=== PATIENT | male | born 1980 | race Caucasian/White ===

== ENCOUNTER 2021-09-13 10:08 | Emergency (ER) | payer BC, SELFPAY ==
--- NOTE | ~2021-09-13 | XR_ITS ---
EXAMINATION: XR finger 3rd RT min 2V EXAM DATE: 09/13/2021 10:36 INDICATION: PAIN/swelling Rt 3rd finger onset x 3 days after martial art . Initial encounter. TECHNIQUE: Right 3rd finger frontal, lateral and oblique projections obtained and reviewed. There is no prior study for comparison. FINDINGS: On the lateral projection there is 1 mm ossification along the volar aspect of the right 3r d middle phalangeal neck, could been usual location for an avulsion fracture and could be chronic fin ding but check for point tenderness. Finding has been indicated. Otherwise unremarkable exam. IMPRESSION: Punctate ossification; DAP volar plate avulsion not excludable. Reviewed, dictated and finalized at location A. ING MACHINE OPERATOR
[2021-09-13 10:20] VITALS: BP 137/73; PULSE 67; RESP 16; TEMP 36.3; O2SAT 100
--- NOTE | 2021-09-13 10:45 | ED.GENADULT ---
HPI - General Adult General Chief complaint: Extremity Injury, Upper Stated complaint: rt middle finger inj Source: patient Mode of arrival: ambulatory Limitations: no limitations History of Present Illness HPI narrative: Patient presents for evaluation of pain, swelling, decreased range of motion of the third digit of the right hand since Tuesday. He indicates he was at [employer] prior to the time of symptom onset. He does not remember injuring himself. He states that he has a stinging sensation in that digit. No erythema or drainage from the digit. He is right-hand dominant. He tried taking ibuprofen with some improvement in his symptoms thereafter. Related Data Allergies Allergy/AdvReac Type Severity Reaction Status Date / Time No Known Allergies Allergy Mild Verified 09/13/21 10:20 Review of Systems Review of Systems: CONSTITUTIONAL: Denies fever, chills, or sweats. EYES: Denies visual changes, redness, or discharge. ENT: Denies rhinorrhea, congestion, sore throat, or otalgia. CARDIOVASCULAR: Denies chest pain, palpitations, or edema. RESPIRATORY: Denies cough or dyspnea. GASTROINTESTINAL: Denies abdominal pain, nausea, vomiting, or diarrhea. GENITOURINARY: Denies dysuria or hematuria. SKIN: Denies rash or itching. MUSCULOSKELETAL: Reports pain, swelling and decreased ROM in 3rd digit of right hand NEUROLOGIC: Denies headache, numbness, dizziness, or weakness. PSYCHIATRIC: Denies anxiety or depression. [facility] Past Medical History Medical History (Updated 09/13/21 @ 11:08 by LAKISHA Self, ) No pertinent past medical history Surgical History Surgical History No pertinent past surgical history Family History Family History Mother Patient's mother is in good health Father Patient's father is in good health Sibling Patient's sister is in good health Patient's brother is in good health Social History Social History Alcohol intake: never Living arrangements: with family Gender identity (if verbalized by the patient): Male Sexual Orientation (if Verbalized by the Patient): Straight or Heterosexual Spiritual care concerns: No Exam Narrative: GENERAL: Well-appearing, well-nourished, and in no acute distress. HEAD: Normocephalic, atraumatic. EYES: PERRLA and EOMI. ENT: Nares clear, no rhinorrhea or epistaxis. Mucous membranes moist. Oropharynx without tonsillar hypertrophy exudate or other lesions. Bilateral TMs pearly langley nonbulging NECK: Supple. No adenopathy or masses. No carotid bruits or JVD CHEST: Clear to auscultation. No respiratory distress. No wheezes rales or rhonchi HEART: Regular rate and rhythm. No murmur heard. Normal peripheral pulses. ABDOMEN: Soft, nontender, nondistended, normal active bowel sounds. EXTREMITIES: There is swelling noted to the third digit of the right hand. There is tenderness over DIP joint of third digit of right hand. 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 5 out of 5 hand home energy inspector strength on the left SKIN: Warm, dry, no rash. NEURO: No focal deficits. Alert and oriented x3. PSYCH: Normal mood and affect. Course Course Emergency Course: This is a 41-year-old male who presented with complaints of pain, swelling, decreased range of motion in the third digit of the right hand. X-ray suggests questionable avulsion fracture. He was provided with a finger splint. He was advised to follow-up with hand surgeon outpatient. Advised on rice therapy. Provided with instructions for which he should return for further evaluation. Pt in agreement with plan of care. Level of Care: Express Care Visit Vital Signs Vital signs: Vital Signs Temperature 36.3 C L 09/13/21 10:20 Pulse Rate 67 09/13/21 10:20 Respiratory Rate 16 09/13/21 10:20 Blood Pressure 137/73 09/13/21
== END 2021-09-13 11:14 | disposition home or self-care (01) ==
PROVIDERS: Emergency Provider Nurse Practitioner; PCP Emergency Medicine
DX: S62.602A Fracture of unspecified phalanx of right middle finger, initial encounter for closed fracture (principal); X58.XXXA Exposure to other specified factors, initial encounter
CPT/HCPCS: 29130; 73140; 99204; G0463

== ENCOUNTER 2023-08-03 04:37 | Emergency (ER) | payer OTHER, SELFPAY ==
[2023-08-03] VITALS (15 sets, daily range): BP systolic 104–142; BP diastolic 67–93; PULSE 78–97; RESP 19–23; TEMP 37.1; O2SAT 98–100
[2023-08-03 04:53] LABS: Basophils Percent Auto 0.2 % (0.2-1.2); Eosinophils Percent Auto 0.1 % (0-4.4); Hematocrit 50.9 % (42.0-52.0); Immature Granulocyte Absolute 0.05 K/mm3 (0.00-0.031); Immature Granulocyte Percent A 0.3 % (0-0.5); Lymphocytes Absolute Auto 0.36 K/mm3 (0.9-3.2); Lymphocytes Percent Auto 2.5 % (18.3-44.2); Mean Corpuscular HGB Conc 33.4 g/dl (32-36); Mean Corpuscular Hemoglobin 30.4 pg (26-34); Mean Corpuscular Volume 90.9 fl (80-100); Mean Platelet Volume 10.2 fl (7.4-10.4); Monocytes Absolute Auto 0.3 K/mm3 (0.1-0.6); Monocytes Percent Auto 2.3 % (2.6-8.5); Neutrophils Absolute Auto 13.5 K/mm3 (1.3-6.7); Neutrophils Percent Auto 94.6 % (45.5-73.1); Platelet Count Result 271 k/mm3 (150-375); Red Cell Distribution Width 12.9 % (11.5-14.5); White Blood Count 14.3 K/mm3 (4.5-10.0)
[2023-08-03] MEDS: ONDANSETRON INJ 4 MG/2 ML VIAL IV PUSH (04:54)
[2023-08-03] MEDS: diphenhydrAMINE HCl INJ 50 MG/ML VIAL 25 MG IV PUSH (04:54)
[2023-08-03] MEDS: SODIUM CHLORIDE 0.9% IV 1,000 ML 999 ML IV CONT (04:55)
[2023-08-03 05:04] LABS: Alanine Aminotransferase 33 U/L (6-50); Albumin Level 5.1 g/dL (3.5-5.1); Alkaline Phosphatase 84 U/L (38-126); Anion Gap 15 mmol/L (8-16); Aspartate Amino Transferase 33 U/L (17-59); Bilirubin,Total 1.1 mg/dL (0.2-1.3); Blood Urea Nitrogen 22 mg/dL (9-20); Calcium 10.7 mg/dL (8.4-10.2); Carbon Dioxide 23 mmol/L (22-30); Chloride 103 mmol/L (98-107); Estimated CRCL calculation 57 ml/min; Estimated Glomerular Filt Rate 51; Glucose 160 mg/dL (65-110); Potassium 4.2 mmol/L (3.4-5.0); Sodium 141 mmol/L (137-145)
--- NOTE | 2023-08-03 05:33 | ED.GENADULT ---
HPI - General Adult General Chief complaint: Nausea/Vomiting/Diarrhea Stated complaint: N/V History of Present Illness HPI narrative: patient presents the emergency department with nausea and vomiting. Feeling has similar symptoms. EMS found him laying on the floor of the bathroom. He has been vomiting for a few hours. Related Data Allergies Allergy/AdvReac Type Severity Reaction Status Date / Time No Known Allergies Allergy Mild Verified 09/13/21 10:20 Review of Systems Review of Systems: Negative except for what is documented in the HPI [facility] Past Medical History Medical History (Updated 08/03/23 @ 05:52 by Taryn Wilcox MD) No pertinent past medical history Surgical History Surgical History No pertinent past surgical history Family History Family History Mother Patient's mother is in good health Father Patient's father is in good health Sibling Patient's sister is in good health Patient's brother is in good health Social History Social History Alcohol intake: never Living arrangements: with family Gender identity (if verbalized by the patient): Male Sexual Orientation (if Verbalized by the Patient): Straight or Heterosexual Spiritual care concerns: No Exam Narrative: GENERAL: Well-appearing, well-nourished, and in no acute distress. uncomfortable HEAD: Normocephalic, atraumatic. EYES: PERRLA and EOMI. ENT: Nares clear, no rhinorrhea or epistaxis. Mucous membranes moist. NECK: Supple. CHEST: Clear to auscultation. No respiratory distress. HEART: Regular rate and rhythm. ABDOMEN: Soft, nontender, nondistended. EXTREMITIES: Normal range of motion. No edema. SKIN: Warm, dry, no rash. NEURO: No focal deficits. Alert and oriented x3. PSYCH: Normal mood and affect. Course Vital Signs Vital signs: Vital Signs Pulse Oximetry 100 08/03/23 04:45 Temperature 37.1 C 08/03/23 04:46 Pulse Rate 97 08/03/23 04:47 Respiratory Rate 20 08/03/23 04:47 Blood Pressure 104/83 08/03/23 04:47 Pulse Oximetry 100 08/03/23 04:47 Oxygen Delivery Room Air 08/03/23 04:46 Medical Decision Making MDM Narrative Medical decision making narrative: differential diagnosis includes but not limited to gastroenteritis, marijuana induced vomiting, food poisoning after Zofran and fluids patient is feeling much better. Able to tolerate p.o.. Labs grossly unremarkable Vital Signs Vital Signs: Vital Signs Pulse Oximetry 100 08/03/23 04:45 Temperature 37.1 C 08/03/23 04:46 Pulse Rate 97 08/03/23 04:47 Respiratory Rate 20 08/03/23 04:47 Blood Pressure 104/83 08/03/23 04:47 Pulse Oximetry 100 08/03/23 04:47 Oxygen Delivery Room Air 08/03/23 04:46 Lab Data 08/03/23 04:46 08/03/23 04:46 Labs: Lab Results 08/03/23 Range/Units 04:46 WBC 14.3 H (4.5-10.0) K/mm3 RBC 5.60 (4.6-6.20) M/mm3 Hgb 17.0 (14.0-18.0) g/dL Hct 50.9 (42.0-52.0) % MCV 90.9 (80-100) fl MCH 30.4 (26-34) pg MCHC 33.4 (32-36) g/dl RDW 12.9 (11.5-14.5) % Plt Count 271 (150-375) k/mm3 MPV 10.2 (7.4-10.4) fl Immature Gran % (Auto) 0.3 (0-0.5) % Neut % (Auto) 94.6 H (45.5-73.1) % Lymph % (Auto) 2.5 L (18.3-44.2) % [place] % (Auto) 2.3 L (2.6-8.5) % Eos % (Auto) 0.1 (0-4.4) % Baso % (Auto) 0.2 (0.2-1.2) % Lymph # (Auto) 0.36 L (0.9-3.2) K/mm3 [place] # (Auto) 0.3 (0.1-0.6) K/mm3 Eos # (Auto) 0.0 (0-0.3) K/mm3 Baso # (Auto) 0.0 (0.0-0.1) K/mm3 Abs Immat Gran (auto) 0.05 H (0.00-0.031) K/mm3 Absolute Neuts (auto) 13.5 H (1.3-6.7) K/mm3 Absolute Nucleated RBC 0.0 (0.0-0.012) K/mm3 Nucleated RBC % 0.0 (0.0-0.2) % Sodium 141 (137-145) mmol/L Potassium 4.2 (3.4-5.0) mmol/
== END 2023-08-03 07:15 | disposition home or self-care (01) ==
PROVIDERS: Emergency Provider Emergency Medicine; PCP Emergency Medicine
DX: K52.9 Noninfective gastroenteritis and colitis, unspecified (principal)
CPT/HCPCS: 36415; 80053; 85025; 96361; 96374; 96375; 99284; J1200; J2405; J7030

== ENCOUNTER 2025-05-24 20:17 | Emergency (ER) | payer SELFPAY ==
--- OUTSIDE RECORDS SUMMARY | 2006-08-01 19:00 | XMS_ITS | Continuity of Care Document ---
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 Phone Unavailable Unavailable Unavailable Procedures Procedure Date HOME VST EST PT LOW TO MOD SEVERITY HOME VST EST PT LOW TO MOD SEVERITY Office Visit (No Chrg) Periodont scaling & root planing, 4+ prasanna th, per qu Amalgam two surfaces Amalgam one surface Amalgam one surface Extraction erupted tooth or exposed root Amalgam one surface Advance Directives Directive Yes / No Effective Date File Name No Information Encounters Encounter Description Practice Location Reason(s) For Visit Diagnoses Date Provider Providers Copied on Encounter HOME VST EST PT LOW TO MOD SEVERITY [facility] , [address], [place], [place], [address], [place] tel:[phone] Skilled Nursing FLU W RESP MANIFEST NEC No Information HOME VST EST PT LOW TO MOD SEVERITY [facility] , [address], [place], [place], [id number], [place] tel:[phone] Skilled Nursing OTHER SPECFD COUNSELING No Information [facility] , [address], [place], [place], [id number], [place] tel:[phone] DO NOT USE [facility] DENTAL EXAMINATION No Information [facility] , [address], [place], [place], [address], [place] tel:[phone] DO NOT USE [facility] DENTAL EXAMINATION No Information [facility] , [address], [place], [place], [address], tel:[phone] DO NOT USE [facility] DENTAL EXAMINATION No Information [facility] , [address], [place], [place], [address], tel:[phone] DO NOT USE [facility] DENTAL EXAMINATION No Information Family History Family Member Type Diagnosis Age At Onset No Information Payers Payer name Insurance type Covered alliance party ID Authoriza tion(s) No Information Social History Type Description Quantity Date Captured Comments Sex Male Smoking Status No Information Chief Complaint And Reason For Visit No Information Reason For Referral Reason For Referral No Information History Of Present Illness Encounter Date Complaint History Of Prese nt Illness No Information Functional Status Date Functional Assessmen t No Information Instructions Date Instruction Additional Infor mation No Information Assessments Type Assessment Date No Information Patient Care Teams Name Effective Dates (start - stop) Status Members No Information
--- OUTSIDE RECORDS SUMMARY | 2006-08-01 19:00 | XMS_ITS | Continuity of Care Document ---
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 Phone Unavailable Unavailable Unavailable Procedures Procedure Date HOME VST EST PT LOW TO MOD SEVERITY HOME VST EST PT LOW TO MOD SEVERITY Office Visit (No Chrg) Amalgam one surface Periodont scaling & root planing, 4+ prasanna th, per qu Amalgam two surfaces Extraction erupted tooth or exposed root Amalgam one surface Amalgam one surface Advance Directives Directive Yes / No Effective Date File Name No Information Encounters Encounter Description Practice Location Reason(s) For Visit Diagnoses Date Provider Providers Copied on Encounter HOME VST EST PT LOW TO MOD SEVERITY [facility] , [address], [place], [place], [address], [place] tel:[phone] [facility] FLU W RESP MANIFEST NEC No Information HOME VST EST PT LOW TO MOD SEVERITY [facility] , [address], [place], [place], [address], [place] tel:[phone] [facility] OTHER SPECFD COUNSELING No Information [facility] , [address], [place], [place], [address], [place] tel:[phone] DO NOT USE [facility] DENTAL EXAMINATION No Information [facility] , [address], [place], [place], [address], [place] tel:[phone] DO NOT USE [facility] DENTAL EXAMINATION No Information [facility] , [address], [place], [place], [address], tel:[phone] DO NOT USE [facility] DENTAL EXAMINATION No Information [facility] , [address], [place], [place], [address], tel:[phone] DO NOT USE [facility] DENTAL EXAMINATION No Information Family History Family Member Type Diagnosis Age At Onset No Information Payers Payer name Insurance type Covered republican ID Authoriza tion(s) No Information Social History [...]
--- OUTSIDE RECORDS SUMMARY | 2023-02-17 04:37 | XMS_ITS | Continuity of Care Document ---
Author Organization [facility] Address [address] [address] [place] [address] Phone Care Team Providers Care Lead Operator Name Role Phone Balbir Schaeffer MD Unavailable Unavailable Allergies, Adverse Reactions, Alerts Substance Reaction Status Criticality No Known Allergies Active No Inform ation Medications Medication Instructions Dosage Effective Dates (start - stop) Status Comments hydrocodone 5 mg-acetaminophen 325 mg tablet take 1 tablet by oral route every 6 hours as needed for pain as needed 1.00 tablet - Active PRN for headache, avoid driving or operate machines Procedures Procedure Date PREV VISIT, EST, AGE 40-64 OFFICE/OUTPATIENT VISIT, EST PREV VISIT, EST, AGE 40-64 OFFICE/OUTPATIENT VISIT, EST PREV VISIT, EST, AGE 40-64 OFFICE/OUTPATIENT VISIT, EST PREV VISIT, EST, AGE 18-39 OFFICE/OUTPATIENT VISIT, EST PREV VISIT, EST, AGE 18-39 OFFICE/OUTPATIENT VISIT, EST OFFICE/OUTPATIENT VISIT, EST OFFICE/OUTPATIENT VISIT, EST PREV VISIT, EST, AGE 18-39 OFFICE/OUTPATIENT VISIT, EST PREV VISIT, EST, AGE 18-39 OFFICE/OUTPATIENT VISIT, EST PREV VISIT, EST, AGE 18-39 OFFICE/OUTPATIENT VISIT, EST OFFICE/OUTPATIENT VISIT, EST OFFICE/OUTPATIENT VISIT, EST OFFICE/OUTPATIENT VISIT, EST OFFICE/OUTPATIENT VISIT, EST PREV VISIT, EST, AGE 18-39 OFFICE/OUTPATIENT VISIT, EST OFFICE/OUTPATIENT VISIT, EST OFFICE/OUTPATIENT VISIT, EST OFFICE/OUTPATIENT VISIT, EST OFFICE/OUTPATIENT VISIT, EST PREV VISIT, NEW, AGE 18-39 Advance Directives Directive Yes / No Effective Date File Name No Information Encounters Encounter Description Practice Location Reason(s) For Visit Diagnoses Date Provider Providers Copied on Encounter PREV VISIT, EST, AGE 40-64 [facility], [address] [place], [address], tel:[phone] [facility] Medicine physical (chief complaint) Encounter for general adult medical exam w abnormal findingsLesion of ulnar nerve, right upper limbMigraine w/o aura, not intractable, w/o status migrainosusMixed hyperlipidemiaAbno rmal weight loss 3 Maksim Mcgregor. [address], [place], [place], [address] , [place]. tel:[phone] PREV VISIT, EST, AGE 40-64 [facility], [address], [place], [place], [address], [place] tel:[phone] [facility] Medicine physical (chief complaint) Encounter for general adult medical exam w abnormal findingsHyperlipid emiaMigraineLesion of ulnar nerve, right upper limbGeneralized Anxiety Disorder 1 Maksim Mcgregor. [address], [place], [place], [address] , [place]. tel:[phone] PREV VISIT, EST, AGE 40-64 [facility], [address], [place], [place], [address], [place] tel:[phone] [facility] PHysical (chief complaint) Encounter for general adult medical exam w abnormal findingsIrritable bowel syndromeHeadachePa peng attackHyperlipidem ia 0 Maksim Mcgregor. [address], [place], [place], [address] , [place]. [phone] PREV VISIT, EST, AGE 18-39 [facility], [address], [place], [place], [address], [place] [phone] [facility] PHysical (chief complaint) Encounter for general adult medical exam w abnormal findingsMigraineCo litisHyperlipidemi a 9 Maksim Mcgregor. [address], [place], [place], [address] , [place]. tel:[phone] Referring Provider: Olivia Hernandez [address], [place], [place], [address]. tel:[phone] PREV VISIT, EST, AGE 18-39 [facility], [address], [place], [place], [address], [place] tel:[phone] [facility] PHysical (chief complaint) Encounter for general adult medical exam w abnormal findingsMigraineCo litisHyperlipidemi a 8 Maksim Mcgregor. [address], [place], [place], [address] , [place]. [phone] Referring Provider: Olivia [address], [place], [place], [address]. tel:[phone] OFFICE/OUTPA TIENT VISIT, EST [facility], [address], [place], [place], [address], [place] tel:[phone] [facility] numbness1 (chief complaint) Paresthesia of skinLesion of ulnar nerve, right upper limb 8 Maksim Mcgregor. [address], [place], [place], [address] , [place]. [phone] Referring Provider: Olivia [address], [place], [place], [address]. tel:[phone] OFFICE/OUTPA TIENT VISIT, EST [facility], [address], [place], [place], [address], [place] tel:[phone] [facility] colitis1 (chief complaint)h eadache1 (chief complaint)H LP (chief complaint) ColitisHeadacheHyp erlipidemia 7 Maksim Mcgregor. [address], [place], [place], [address] , . tel:[phone] Referring Provider: Olivia [address], [place], [place], [address]. tel:[phone] PREV VISIT, EST, AGE 18-39 [facility], [address], [place], [place], [address], [place] tel:[phone] [facility] PHysical (chief complaint) Encounter for general adult medical exam w abnormal findingsHeadacheHy perlipidemiaColiti s 7 Maksim Mcgregor. [address], [place], [place], [address] , . tel:[phone] Referring Provider: Olivia [address], [place], [place], [address]. tel:[phone] PREV VISIT, EST, AGE 18-39 [facility], [address], [place], [place], [address], [place] tel:[phone] [facility] headache1 (chief complaint)H LP (chief complaint)P hysical (chief complaint) Encntr for general adult medical exam w/o abnormal findings 6 Maksim Mcgregor. [address], [place], [place], [address] , [place]. tel:[phone] Referring Provider: Olivia [address], [place], [place], [address]. tel:[phone] OFFICE/OUTPA TIENT VISIT, EST [facility], [address] [place], [address], tel:[phone] [facility] HLP (chief complaint)h eadache1 (chief complaint)i nsomnia1 (chief complaint)l ow D (chief complaint) Insomnia, unspecifiedHeadach eHyperlipidemiaVit chase D deficiency, unspecified 6 Maksim Mcgregor. [address], [place], [place], [address] , [place]. [phone] Referring Provider: Olivia [address], [place], [place], [address]. tel:[phone] PREV VISIT, EST, AGE 18-39 [facility], [address], [place], [place], [address], [place] [phone] [facility] PHysical (chief complaint) Encntr for general adult medical exam w/o abnormal findings 6 Maksim Mcgregor. [address], [place], [place], [address] , [place]. tel:[phone] Referring Provider: Olivia [address], [place], [place], [address]. tel:[phone] OFFICE/OUTPA TIENT VISIT, EST [facility], [address], [place], [place], [address], [place] [phone] [facility] headache (chief complaint)H LP (chief complaint)i nsomnia (chief complaint) HeadacheOther and unspecified hyperlipidemiaInso mnia, unspecified 5 Maksim Mcgregor. [address], [place], [place], [address] , [place]. [phone] Referring Provider: Olivia [address], [place], [place], [address]. tel:[phone] OFFICE/OUTPA TIENT VISIT, EST [facility], [address], [place], [place], [address], [place] tel:[phone] [facility] back pain (chief complaint)H LP (chief complaint) Other and unspecified hyperlipidemiaLumb ago 5 Maksim Mcgregor. [address], [place], [place], [address] , [place]. [phone] Referring Provider: Olivia [address], [place], [place], [address]. tel:[phone] OFFICE/OUTPA TIENT VISIT, [facility], [address], [place], [place], [address], [place] tel:[phone] [facility] HLP (chief complaint)i nsomnia (chief complaint)h eadache (chief complaint) HeadacheOther and unspecified hyperlipidemiaInso mnia, OtherUnspecified chronic liver disease without mention of alcohol 5 Maksim Mcgregor. [address], [place], [place], [address] , [place]. tel:[phone] Referring Provider: Olivia [address], [place], [place], [address]. tel:[phone] OFFICE/OUTPA TIENT VISIT, [facility], [address], [place], [place], [address], [place] tel:[phone] [facility] headache (chief complaint)I Nsomnia (chief complaint) HeadacheInsomnia, Other 4 Maksim Mcgregor. [address], [place], [place], [address] , [place]. tel:[phone] Referring Provider: Olivia [address], [place], [place], [address]. tel:[phone] OFFICE/OUTPA TIENT VISIT, [facility], [address], [place], [place], [address], [place] tel:[phone] [facility] HLP (chief complaint)L FT (chief complaint)v itamin D (chief complaint)h eadache (chief complaint) Other and unspecified hyperlipidemiaUnsp ecified chronic liver disease without mention of alcoholUnspecified vitamin d deficiencyHeadache 4 Maksim Mcgregor. [address], [place], [address] , [place]. tel:[phone] Referring Provider: Olivia [address], [place], [place], [address]. tel:[phone] PREV VISIT, EST, AGE 18-39 [facility], [address], [place], [place], [address], [place] tel:[phone] [facility] PHysical (chief complaint) Routine Medical ExamRoutine Medical Exam 4 Maksim Mcgregor. [address], [place], [place], [address] , [place]. tel:[phone] Referring Provider: Olivia [address], [place], [place], [address]. tel:[phone] OFFICE/OUTPA TIENT VISIT, [facility], [address], [place], [place], [address], [place] tel:[phone] [facility] headache (chief complaint) HeadacheRESTLESS LEGS SYNDROME 4 Maksim Mcgregor. [address], [place], [place], [address] , [place]. tel:[phone] Referring Provider: Olivia [address], [place], [place], [address]. tel:[phone] OFFICE/OUTPA TIENT VISIT, [facility], [address], [place], [address], [place] tel:[phone] [facility] headache (chief complaint)r estless leg (chief complaint) HeadacheRESTLESS LEGS SYNDROME 4 Maksim Mcgregor. [address], [place], [place], [address] , [place]. tel:[phone] Referring Provider: Olivia Hernandez [address], [place], [place], [address]. tel:[phone] OFFICE/OUTPA TIENT VISIT, [facility], [address], [place], [place], [address], [place] tel:[phone] [facility] headache (chief complaint)r estless leg (chief complaint)H TN (chief complaint) HeadacheHypertensi on, UnspecifiedRESTLES S LEGS SYNDROME 4 Maksim Mcgregor. [address], [place], [place], [address] , [place]. tel:[phone] Referring Provider: Olivia Hernandez [address], [place], [place], [address]. tel:[phone] OFFICE/OUTPA TIENT VISIT, [facility], [address], [place], [address], [place] tel:[phone] [facility] headache (chief complaint)i nsomnia (chief complaint)r ight ear stuffy (chief complaint) HeadacheInsomnia, OtherImpacted cerumen 4 Maksim Mcgregor. [address], [place], [place], [address] , [place]. [phone] Referring Provider: Olivia [address], [place], [place], [address]. tel:[phone] OFFICE/OUTPA TIENT VISIT, [facility], [address], [place], [place], [address], [place] tel:[phone] [facility] contact dermatitis (chief complaint) Dietary surveillance and counselingContact dermatitis and other eczema, unspecified cause 4 Maksim Mcgregor. [address], [place], [place], [address] , [place]. [phone] Referring Provider: Olivia Hernandez [address], [place], [place], [address]. tel:[phone] PREV VISIT, NEW, AGE 18-39 [facility], [address], [place], [address], [place] tel:[phone] [facility] Physical (chief complaint) Dietary surveillance and counselingRoutine Medical ExamRoutine Medical Exam 3 Maksim Mcgregor. [address], [place], [place], [address] , [place]. [phone] Referring Provider: Olivia Hernandez [address], [place], [place], [address]. tel:[phone] Family History Family Member Type Diagnosis Age At Onset Father Problem (finding) Alive and well Mother Problem (finding) Alive and well Brother Problem (finding) Alive and well Payers Payer name Insurance type Covered green party ID Authoriza [email or web address](s) No Information Social History Type Description Quantity Date Captured Comments Alcohol Use Details No Caffeine Use Details Unknown Tobacco Use Status Heavy cigarette smoker Smoking Status Heavy tobacco smoker Sex Male Vital Signs Date / Time: Height Weight BMI Pulse Rate Blood Pressure Temperature Respiratory Rate Body Surface Area Head Circumference BMI percentile Pulse Ox Inhaled Ox 9:38 AM 71.00 in 155.00 lbs 21.6 2 kg/m eter (2) 69 /min 110/70 mm[Hg] 97.8 F 16 /min Chief Complaint And Reason For Visit From encounter dated 02/17/2023 09:37'. physical (chief complaint). Description: Pt needs annual physical. pt c/o chronic right elbow pain with radiation to right lateral hand along ulnar side. Pt never followed up with hand specialist Pt denies any injury Pt feels right hand weakness sometimes. Pt also has chronic and intermittent migraine headache Pt has headache about once per month. Pt c/o throbbing headache with photophobia and nausea. Pt denies any head injury or waking up at night with headache Pt states that usually stress and overwork and lack of rest usually triggers the headache Pt has headache about once per month Pt takes norco and ibuprofen which helps ,Pt also has been losing weight Pt states that he walks miles atwork per day and he also has been diet and exercising as well Pt denies any nausea, vomiting, earlysatiety, loss of appetite, change of bowel, etc Pt denies any other complaints Plan Of Treatment Date Type Action Status Goal Tdap. Due on due Goal Td vaccine. Due on 23 due Goal Influenza vaccine. Due on due Goal Lipid panel. Due on 023 due Goal Depression screening. Due on due Goal Depression screening. Due on due Goal Lipid panel. Due on 021 due Goal Influenza vaccine. Due on Ja due Goal Tdap. Due on due Goal Td vaccine. Due on 21 due Goal Depression screening. Due on due Goal Lipid panel. Due on 020 due Goal Influenza vaccine. Due on Ma due Goal Tdap. Due on due Goal Td vaccine. Due on due Goal Depression screening. Due on due Goal Influenza vaccine. Due on due Goal Tdap. Due on due Goal Td vaccine. Due on 19 due Goal Tobacco cessation counseling completed Goal Depression screening. Due on due Goal Influenza vaccine. Due on due Goal Tdap. Due on due Goal Td vaccine. Due on 18 due Goal Td vaccine. Due on 18 due Goal Tdap. Due on due Goal Depression screening. Due on due Goal Depression screening. Due on due Goal Td vaccine. Due on 17 due Goal Tdap. Due on due Goal Depression screening. Due on due Goal Tdap. Due on due Goal Td vaccine. Due on 17 due Goal Depression screening. Due on due Goal Tdap. Due on due Goal Td vaccine. Due on 16 due Goal Tdap. Due on due Goal Td vaccine. Due on due Goal Depression screening. Due on due Goal Tdap. Due on due Goal Depression screening. Due on due Goal Td vaccine. Due on due Goal Depression screening. Due on due Goal Td vaccine. Due on due Goal Tdap. Due on due Goal Tobacco cessation counseling completed Goal Tobacco cessation counseling completed Goal Tobacco cessation counseling completed Goal Tobacco cessation counseling completed Goal Tobacco cessation counseling completed Goal Tobacco cessation counseling completed Goal Tobacco cessation counseling completed Goal Tobacco cessation counseling completed Goal Tobacco cessation counseling completed Referral Ordered: [facility] : Orthopaedic Surgery (related to Lesion of ulnar nerve, right upper limb) ordered Referral Referred To: GUY COTA [address], [place], [id number] Ordered: Referrals: [facility] : Orthopaedic Surgery. GUY COTA. Evaluate and treat ordered Referral Referred To: Mega Mohr MD [facility]
[address] [place], [place], [address] Ordered: Referrals: Mega Mohr MD. Evaluate and treat ordered Referral Ordered: Pete Zhang (related to Paresthesia of skin) ordered Referral Referred To: Pete Zhang [address] [place], [place] [id number] Ordered: Referrals: Pete Zhang. Evaluate and treat ordered Referral Ordered: Dontrell Barnett (related to Colitis) ordered Referral Ordered: Dontrell Barnett (related to Colitis) ordered Referral Referred To: Dontrell Barnett [address]
[facility] [address] [place], [phone] Ordered: Referrals: Dontrell Barnett. Evaluate and treat ordered Referral Ordered: MRI BRAIN W/O & W/DYE ordered Referral Ordered: US EXAM, ABDOM, COMPLETE ordered History Of Present Illness Encounter Date Complaint History Of Prese nt Illness physical Pt needs annual physical. pt c/o chronic right elbow pain with radiation to right lateral hand along ulnar side. Pt never followed up with hand specialist Pt denies any injury Pt feels right hand weakness sometimes. Pt also has chronic and intermittent migraine headache Pt has headache about once per month. Pt c/o throbbing headache with photophobia and nausea. Pt denies any head injury or waking up at night with headache Pt states that usually stress and overwork and lack of rest usually triggers the headache Pt has headache about once per month Pt takes norco and ibuprofen which helps ,Pt also has been losing weight Pt states that he walks miles at work per day and he also has been diet and exercising as well Pt denies any nausea, vomiting, early satiety, loss of appetite, change of bowel, etc Pt denies any other complaints physical Pt needs annual physical. Pt has mild anxiety Pt denies any depression or any suicidal thought Pt denies any crying spells. Pt takes vistaril PRn for anxiety and panic attacks. Pt has intermittent stress headache Pt denies any head injury or waking up at night with headache Pt does not want to take any prophylactic meds Pt takes norco PRN for headache Pt notices more headache during stress Pt has some pressure and throbbing headache. Pt failed Imitrex .Pt has HLP Pt has not done lab yet .Pt c/o right elbow pain with radiating pain down to right ulnar side of right hand and to right 5th finger Pt notices mild pain around PIP joint of all fingers right hand .Pt states that he has hard time holding first in the morning. Pt notices mild right hand weakness sometimes . PHysical Pt needs annual physical. Pt c/o intermittent stress related headache chronically. Pt has headache sometimes 1-2 per week and sometimes once per month Pt denies any head injury Pt denies waking up at night with headache Pt feels throbbing headache around temporal area and sometimes the whole head .Pt has photophobia Pt denies any nausea. Pt states that light and noise do bother him Pt denies any worsening headache. Pt takes OTC for headache and he takes norco PRn when he has residual headache Pt denies any trigger factor Pt does not want MRi or CT of the brain. Pt states that he left his stressful job a while back and his GI symptoms are much better Pt c/o mild bloating and some loose stool Pt denies any blood in stool. Pt had negative colonoscopy back in 2016. Pt never had EGD. Pt denies any GERD or postprandial pain Pt states that his Gi symptoms are much better now since leaving the stressful job Pt states that he has not seen GI for a while. Pt states that he occasionally has panic attacks due to anxiety .Pt denies any depression or any suicidal thought ,Pt denies any crying spells . Pt states that he clinch his teeth and he has some palpitation when he has panic attacks. Pt does have baseline anxiety and stress. PHysical Pt needs annual physical. pt has chronic intermittent GI symptoms including nausea, rectal pressure, some bright red blood per rectum fatigue, mild loose stool. Pt states that he does not have above all that time. He only has symptoms intermittently but he feels nauseated all the time Pt is on protonix daily for nausea. Pt told me he actually finished protonix x 4 weeks and he has less nausea now Pt has intermittent diffuse abdominal with flare up. Pt last time had a full flare up about one year ago. Pt is on mesalamine now for almost one year. Pt at this point does NOT have a definitive diagnosis yet. Pt still feels exhausted all the time with nausea. Pt never had EGD. Pt has migraine headache in intermittent migraine headache. Pt denies any acute headache Pt has nausea and photophobia with headache Pt denies any had injury. Pt denies any worsening headache. Pt denies waking up at night with headache. Pt has headache 1-2 per month Pt failed topamax, amitriptyline, Imitrex, propranolol. Pt denies any acute headache PHysical Pt needs annual physical. Pt has intermittent colitis and abdominal pain Pt has abd pain diarrhea and sometimes vomiting and he has to go to ER for it Pt is seeing GI at [facility] Pt had normal Ct per [facility] GI and normal colonoscopy Pt is on mesalamine now. Pt does not have active GI diagnosis at this point. Pt also has migraine headache Pt has throbbing headache with photophobia and nausea on average 1-2 per month and sometimes more frequent. Pt failed topamax, amitriptyline, imitrex. Pt takes norco PRN for headache. Pt denies any other complaints. Pt wants to know if medical marijuana is a good option for him. Pt also has high TG Pt is noncompliant with feno. Pt does not want to take meds. numbness1 Pt c/o sudden on set of numbness and tingling right 1st and 2nd and 3rd finger for 2-3 weeks. Pt denies any elbow pain. Pt denies any neck or shoulder pain. pt did feel some pain between T spine and right shoulder blade toegether with the finger numbness but currenlty his back symptmos resolved. Pt denies any weakness. Pt states that he sometimes has to flick his right hand to get the feeling back. He denies any speech problem or vision change or headache colitis1 Pt recently had colonoscopy which showed microscopic colitis. Pt denies any abd pain or any blood in stool or any diarrhea or constipation. Pt states that he took cipro and flagyl last time which took care of the problem. Pt no longer wants to see Dr. Boothe anymore. he wants to see Dr. Walsh at [place]. headache1 Pt has intermitt ent throbbing headache behind right eye. Pt has headache sometimes once per week and something once every 4 weeks Pt denies any head injury Pt denies waking up at night with headache HLP Pt has high Tg. Pt is still not eating good Pt does not do any diet. He eats a lot of processed food. Pt is noncompliant with feno PHysical Pt needs annual physical. Pt has history of high TG but he is noncompliant with feno. Pt has not been taking feno for a while. Pt has been diet and exercising on his own Pt has frequent migraine heaeache. Pt failed topamax and and also amitriptyline. Pt states that he has throbbing headache with photophobia along with the headache. Pt states that it usually brings out by stress, lack of sleep. Pt also failed imitrex. Pt states that he has headache 1-2 per week and sometimes 1-2 per month. Pt had midabdominal pain and some diarrhea with ? bright red blood last week and he sujatha tto ER and CT showed left inguinal hernia and also colitis. Pt was given Cirpo and flagyl and his symptoms resolved now. Pt denies any left inguinal pain or mass. Pt denies any nauea vomtiing headache1 Pt has chronic m igraine hedache. Pt has throbbing headache. Pt takes topamax and amitriptyline. Pt states that he has headache 1-2 per week and sometimes1-2 per months pt takes norco during the headache. Pt failed imitrex in the past. Pt denies any head injury. Pt denies waking up at night with headache HLP Pt has HLP. Pt t ook feno. Pt denies any myalgia. Pt has not done lab yet Pt is working on low fat and low carb diet Physical Pt needs annualk physical. pt has history of elevated TG Pt took feno Pt denies any myalgia. Pt has not done lab yet HLP Pt has elevated TG. Pt failed diet and exercise. Pt does not eat healthy headache1 Pt has chornic m igraine headache Pt has photophobia and nauea with headache. Pt states that topmax helped but he is out now pt has headache about once per week. Pt states that topmax makes the headache less frequent and less intense insomnia1 Pt has insomnia Pt takes amitritpyline which helps. low D Pt has low D. Pt is taking OTC vitamin D PHysical Pt needs annual physical. Pt has chronic migraine headache Pt has throbbing headache with photophobia about once per week. Pt still taking topamax. Pt statse that tylenol #3 no longer help when he has headache. Pt also has insomnia and he takes amitriptyilne which works ok PT denies any snoring .Pt denies any fatiue. Pt states that his headache is stronger but less frequent than in the past but last longer than in the past per episode Pt states that headache last sometimes around 1-2 days HLP Pt has HLP. Pt i s noncompliant. Pt took zocor for 3 months and stopped it Pt did not do lab work. headache Pertinent negati ves include memory loss or vomiting. Additional information: Pt has chornic intermittent migrane headache. Pt c/o throbbing headache. Pt has nauea and photophobia along with headache. Pt takes topamax and amitriptyline Pt states that lack of rest makes the headache more frequent. Pt has headache once every two weeks. Pt denies any worsening headache. insomnia The patient pres ents for insomnia. Relevant history: a BMI of 26.22. The patient does not have: use of alcohol. The patient is experiencing headache upon awakening. The patient denies depression, heartburn, weight gain or wheezing. Additional information: Pt has insomnia. pt atkse amitriptyline and doing ok. Pt denies any change in symptoms. no snoring or difficulty with breathing. Instructions Date Instruction Additional Infor mation Quit smoking Related to Encou nter for general adult medical exam w abnormal findings Prescribed Activity and Exercise Education Related to Dietary Surveillance and Counseling Prescribed Diet Educ ation/Lifestyle Education Regarding Diet Related to Dietary Surveillance and Counseling Follow a low salt diet. Related to Paresthesia of skin Advance diet as tolerated Relate d to Colitis Follow a high fiber diet (20-35 grams of fiber per day). Related to Colitis Decrease caloric intake Related to Dietary surveillance counseling Dietary counseling Related to Di etary surveillance counseling Dietary counseling Related to Di etary surveillance counseling Decrease caloric intake Related to Dietary surveillance counseling Assessments Type Assessment Date assessment Encounter for general adult medi ofe exam w abnormal findings assessment Lesion of ulnar nerve, right upp er limb assessment Migraine w/o aura, not intractab le, w/o status migrainosus assessment Mixed hyperlipidemia assessment Abnormal weight loss Mental Status Date Cognitive Assessment Orientation - [place] ed to time, place, person, situation.
--- OUTSIDE RECORDS SUMMARY | 2023-02-17 04:37 | XMS_ITS | Continuity of Care Document ---
Author Organization [facility] Address [address] [place] [address] [place] [address] Phone Care Team Providers Care Card Writer Hand Name Role Phone Balbir Schaeffer MD Unavailable [...] on Encounter PREV VISIT, EST, AGE 40-64 [facility], [address] [place], [address], tel:[phone] [facility] physical (chief complaint) Encounter for general adult medical exam w abnormal findingsLesion of ulnar nerve, right upper limbMigraine w/o aura, not intractable, w/o status migrainosusMixed hyperlipidemiaAbno rmal weight loss 3 Maksim Mcgregor. [address], [place], [place], [address] , [place]. tel:[phone] PREV VISIT, EST, AGE 40-64 [facility], [address], [place], [place], [address], [place] tel:[phone] [facility] physical (chief complaint) Encounter for general adult medical exam w abnormal findingsHyperlipid emiaMigraineLesion of ulnar nerve, right upper limbGeneralized Anxiety Disorder 1 Maksim Mcgregor. [address], [address], [place], [place], [address] , [place]. tel:[phone] PREV VISIT, EST, AGE 40-64 [facility], [address], [place], [place], [address], [place] tel:[phone] [facility] PHysical (chief complaint) Encounter for general adult medical exam w abnormal findingsIrritable bowel syndromeHeadachePa peng attackHyperlipidem ia 0 Maksim Mcgregor. [address], [place], [place], [address] , [place]. [phone] PREV VISIT, EST, AGE 18-39 [facility], [address], [place], [place], [address], [place] [phone] [facility] PHysical (chief complaint) Encounter for general adult medical exam w abnormal findingsMigraineCo litisHyperlipidemi a 9 Maksim Mcgregor. [address], [place], [place], [address] , [place]. tel:[phone] Referring Provider: Olivia [address], [place], [place], [address]. tel:[phone] PREV VISIT, EST, AGE 18-39 [facility], [address], [place], [place], [address], [place] tel:[phone] [facility] PHysical (chief complaint) Encounter for general adult medical exam w abnormal findingsMigraineCo litisHyperlipidemi a 8 Maksim Mcgregor. [address], [place], [place], [address] , [place]. [phone] Referring Provider: Olivia Hernandez [address], [place], [place], [address]. tel:[phone] OFFICE/OUTPA TIENT VISIT, EST [facility], [address], [place], [place], [address], [place] tel:[phone] [facility] numbness1 (chief complaint) Paresthesia of skinLesion of ulnar nerve, right upper limb 8 Maksim Mcgregor. [address], [place], [place], [address] , [place]. [phone] Referring Provider: Olivia Hernandez [address], [place], [place], [address]. tel:[phone] OFFICE/OUTPA TIENT VISIT, EST [facility], [address], [place], [place], [address], [place] tel:[phone] [facility] colitis1 (chief complaint)h eadache1 (chief complaint)H LP (chief complaint) ColitisHeadacheHyp erlipidemia 7 Maksim Mcgregor. [address], [place], [place], [address] , . tel:[phone] Referring Provider: Olivia Hernandez [address], [place], [place], [address]. tel:[phone] PREV VISIT, EST, AGE 18-39 [facility], [address], [place], [place], [address], [place] tel:[phone] [facility] PHysical (chief complaint) Encounter for general adult medical exam w abnormal findingsHeadacheHy perlipidemiaColiti s 7 Maksim Mcgregor. [address], [place], [place], [address] , . tel:[phone] Referring Provider: Olivia Hernandez [address], [place], [place], [address]. tel:[phone] PREV VISIT, EST, AGE 18-39 [facility], [address], [place], [place], [address], [place] tel:[phone] [facility] headache1 (chief complaint)H LP (chief complaint)P hysical (chief complaint) Encntr for general adult medical exam w/o abnormal findings 6 Maksim Mcgregor. [address], [place], [place], [address] , [place]. tel:[phone] Referring Provider: Olivia Hernandez [address], [place], [place], [address]. tel:[phone] OFFICE/OUTPA TIENT VISIT, EST [facility], [address], [address], tel:[phone] [facility] HLP (chief complaint)h eadache1 (chief complaint)i nsomnia1 (chief complaint)l ow D (chief complaint) Insomnia, unspecifiedHeadach eHyperlipidemiaVit chase D deficiency, unspecified 6 Maksim Mcgregor. [address], [place], [place], [address] , [place]. [phone] Referring Provider: Olivia Hernandez [address], [place], [place], [address]. tel:[phone] PREV VISIT, EST, AGE 18-39 [facility], [address], [place], [place], [address], [place] [phone] [facility] PHysical (chief complaint) Encntr for general adult medical exam w/o abnormal findings 6 Maksim Mcgregor. [address], [place], [place], [address] , [place]. tel:[phone] Referring Provider: Olivia Hernandez [address], [place], [place], [address]. tel:[phone] OFFICE/OUTPA TIENT VISIT, EST [facility], [address], [place], [place], [address], [place] [phone] [facility] headache (chief complaint)H LP (chief complaint)i nsomnia (chief complaint) HeadacheOther and unspecified hyperlipidemiaInso mnia, unspecified 5 Maksim Mcgregor. [address], [place], [place], [address] , [place]. tel: [phone] Referring Provider: Olivia Hernandez [address], [place], [place], [address]. tel:[phone] OFFICE/OUTPA TIENT VISIT, EST [facility], [address], [place], [place], [address], [place] tel:[phone] [facility] back pain (chief complaint)H LP (chief complaint) Other and unspecified hyperlipidemiaLumb ago 5 Maksim Mcgregor. [address], [place], [place], [address] , [place]. [phone] Referring Provider: Olivia Hernandez [address], [place], [place], [address]. tel:[phone] OFFICE/OUTPA TIENT VISIT, [facility], [address], [place], [place], [address], [place] tel:[phone] [facility] HLP (chief complaint)i nsomnia (chief complaint)h eadache (chief complaint) HeadacheOther and unspecified hyperlipidemiaInso mnia, OtherUnspecified chronic liver disease without mention of alcohol 5 Maksim Mcgregor. [address], [place], [place], [address] , [place]. tel:[phone] Referring Provider: Olivia Hernandez [address], [place], [place], [address]. tel:[phone] OFFICE/OUTPA TIENT VISIT, [facility], [address], [place], [place], [address], [place] tel:[phone] [facility] headache (chief complaint)I Nsomnia (chief complaint) HeadacheInsomnia, Other 4 Maksim Mcgregor. [address], [place], [address] , [place]. tel:[phone] Referring Provider: Olivia Hernandez [address], [place], [place], [address]. tel:[phone] OFFICE/OUTPA TIENT VISIT, [facility], [address], [place], [place], [address], [place] tel:[phone] [facility] HLP (chief complaint)L FT (chief complaint)v itamin D (chief complaint)h eadache (chief complaint) Other and unspecified hyperlipidemiaUnsp ecified chronic liver disease without mention of alcoholUnspecified vitamin d deficiencyHeadache 4 Maksim Mcgregor. [address], [place], [place], [address] , [place]. tel:[phone] Referring Provider: Olivia Hernandez [address], [place], [place], [address]. tel:[phone] PREV VISIT, EST, AGE 18-39 [facility], [address], [place], [place], [address], [place] tel:[phone] [facility] PHysical (chief complaint) Routine Medical ExamRoutine Medical Exam 4 Maksim Mcgregor. [address], [place], [place], [address] , [place]. tel:[phone] Referring Provider: Olivia Hernandez [address], [place], [place], [address]. tel:[phone] OFFICE/OUTPA TIENT VISIT, [facility], [address], [place], [place], [address], [place] tel:[phone] [facility] headache (chief complaint) HeadacheRESTLESS LEGS SYNDROME 4 Maksim Mcgregor. [address], [place], [place], [address] , [place]. tel:[phone] Referring Provider: Olivia Hernandez [address], [place], [place], [address]. tel:[phone] OFFICE/OUTPA TIENT VISIT, [facility], [address], [place], [place], [address], [place] tel:[phone] [facility] headache (chief complaint)r estless leg (chief complaint) HeadacheRESTLESS LEGS SYNDROME 4 Maksim Mcgregor. [address], [place], [place], [address] , [place]. tel:[phone] Referring Provider: Olivia Hernandez [address], [place], [place], [address]. tel:[phone] OFFICE/OUTPA TIENT VISIT, [facility], [address], [place], [place], [address], [place] tel:[phone] [facility] headache (chief complaint)r estless leg (chief complaint)H TN (chief complaint) HeadacheHypertensi on, UnspecifiedRESTLES S LEGS SYNDROME 4 Maksim Mcgregor. [address], [place], [place], [address] , [place]. tel:[phone] Referring Provider: Olivia Hernandez [address], [place], [place], [address]. tel:[phone] OFFICE/OUTPA TIENT VISIT, [facility], [address], [place], [place], [address], [place] tel:[phone] [facility] headache (chief complaint)i nsomnia (chief complaint)r ight ear stuffy (chief complaint) HeadacheInsomnia, OtherImpacted cerumen 4 aMksim Mcgregor. [address], [place], [place], [address] , [place]. [phone] Referring Provider: Olivia Hernandez [address], [place], [place], [address]. tel:[phone] OFFICE/OUTPA TIENT VISIT, [facility], [address], [place], [place], [address], [place] tel:[phone] [facility] contact dermatitis (chief complaint) Dietary surveillance and counselingContact dermatitis and other eczema, unspecified cause 4 Maksim Mcgregor. [address], [place], [place], [address] , [place]. [phone] Referring Provider: Olivia Hernandez [address], [place], [place], [address]. tel:[phone] PREV VISIT, NEW, AGE 18-39 [facility], [address], [place], [place], [address], [place] tel:[phone] [facility] Physical (chief complaint) Dietary surveillance and counselingRoutine Medical ExamRoutine Medical Exam 3 Maksim Mcgregor. [address], [place], [place], [address] , [place]. [phone] Referring Provider: Olivia Hernandez [address], [place], [place], [address]. tel:[phone] Family History Family Member Type Diagnosis Age At Onset Father Problem (finding) Alive and well Mother Problem (finding) Alive and well Brother Problem (finding) Alive and well Payers Payer name Insurance type Covered constitution party ID Authoriza [email or web address](s) No Information Social [...] ordered Referral Referred To: GUY COTA [address], [place], [phone] Ordered: Referrals: Allopathic & Osteopathic Physicians : Orthopaedic Surgery. [facility]. Evaluate and treat ordered Referral Referred To: Mega Mohr MD [facility]
[address] [place], [place], [address] Ordered: Referrals: Mega Mohr MD. Evaluate and treat ordered Referral Ordered: Pete Zhang (related to Paresthesia of skin) ordered Referral Referred To: Pete Zhang [address] [place], [place] [id number] Ordered: Referrals: Pete Zhang. Evaluate and treat ordered Referral Ordered: Dontrell Barnett (related to Colitis) ordered Referral Ordered: Dontrell Barnett (related to Colitis) ordered Referral Referred To: Dontrell Barnett [address]
[facility] [address] [place], [phone] Ordered: Referrals: Dontrell Barnett. Evaluate and treat [...] for it Pt is seeing GI at [facility] Pt had normal Ct per [facility] GI and normal colonoscopy Pt is on [...] he wants to see Dr. Walsh at [place]. headache1 Pt has intermitt ent throbbing headache [...] of fiber per day). Related to Colitis Dietary counseling Related to Di etary surveillance [...] Mental Status Date Cognitive Assessment Orientation - [place] ed to time, place, person, situation.
[2025-05-24 20:19] VITALS: BP 163/89; PULSE 81; RESP 16; TEMP 36.6; O2SAT 100
--- OUTSIDE RECORDS SUMMARY | 2025-05-24 20:20 | XMS_ITS | Encounter Summary ---
Author Organization [facility] Address [address] [place] [address] Care Team Providers Care Double End Production Grinder Name Role Phone Balbir Schaeffer MD Primary Care Provider [phone] Reason for Visit * Reason Onset Date Comments MEDICATION REFILL 08/16/2018 Encounter Details Date Type Department Care Team (Late st Contact Info) Description 08/16/2018 Refill [facility] [address] [place] [address] Alana Khan, PAMary Alice [address] [id number] MEDICATION REFILL Social History Tobacco Use Types Packs/Day Years Used Date Smoking Tobacco: Every Day Cigarettes Smokeless Tobacco: Never Alcohol Use Standard Drinks/Week Comments No 0 (1 standard drink = 0.6 oz pur e alcohol) Sex and Gender Information Value Date Recorded Sex Assigned at Not on file 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 Author Safety General On track( 019 2:32 PM CDT) Lindsey Dodge, RN Note: Expected end date: Ongoing Interventions: Your nurse will assess your risk for falls/injury each visit Use appropriate and safe transfer methods Medication Management General On track( 019 2:32 PM CDT) Lindsey Dodge, RN Note: Expected end date: Ongoing Interventions: Take all medications as prescribed Let your doctor know right away about any changes in your medications documented as of this encounter Visit Diagnoses Not on filedocumented in this encounter Care Teams Double End Production Grinder Relationship Specialty Start Date End Date Balbir Schaeffer MD [address] [facility] [address] [facility] [address] [place] [id number] PCP - General 02/08/18 documented as of this encounter
--- OUTSIDE RECORDS SUMMARY | 2025-05-24 20:20 | XMS_ITS | Clinical Summary ---
Author Organization [facility] Address [address] [place] [address] Care Team Providers Care Primary Care Pediatrician Name Role Phone Balbir Schaeffer MD Primary Care Provider [phone] Source Comments [facility],non-owned Affiliates and Associated Physician Practices is amultiple site organization consisting of ambulatory clinics and hospital sitesin [place], [place], [place] and [place]. This disclosure is being madepursuant to the Care Everywhere program and may not contain all information available regarding this patient. Last updated 18.[facility] Allergies No known active allergies Medications * This document contains information received from the source organization and may not represent a complete record from that organization. * Be aware that medications may not be up to date on this document. Alwaysverify current medications with the patient. HYDROcodone-farhad taminophen (NORCO) 5-325 MG tablet Take 0.5-1 tablets by mouth as needed As needed for migraines Active pantoprazole EC (PROTONIX) 40 MG tablet Take 1 tablet by mouth once daily 30 tablet 5 9 Active budesonide (UCERIS) 9 MG tablet Take 1 tablet by mouth every morning 30 tablet 1 9 Active Active Problems Problem Noted Date Diagnosed Date [place] 12/27/2018 GERD (gastroesophageal reflux disease) 9 Nausea 12/27/2018 Colitis 02/08/2018 Social History Tobacco Use Types Packs/Day Years Used Date Smoking Tobacco: Every Day Cigarettes 1 39 Smokeless Tobacco: Never Alcohol Use Standard Drinks/Week Comments No 0 (1 standard drink = 0.6 oz pur e alcohol) Sex and Gender Information Value Date Recorded Sex Assigned at Not on file 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 Gender Identity Not on file Sexual Orientation Not on file Last Filed Vital Signs Vital Sign Reading Time Taken Comments Blood Pressure 136/86 12/27/2018 2:13 PM CDT Pulse 100 12/27/2018 2:13 PM CDT Temperature 36.9 C (98.5 F) 12/27/2018 2:13 PM CDT Respiratory Rate 20 12/27/2018 2:13 PM CDT Oxygen Saturation 98% 12/27/2018 2:13 PM CDT Inhaled Oxygen Concentration - - Weight 79.6 kg (175 lb 8 oz) 12/27/2018 2:13 PM CDT Height 180.3 cm (5' 11) 12/27/2018 2:13 PM CDT Body Mass Index 24.48 12/27/2018 2:13 PM CDT Plan of Treatment Health Maintenance Due Date Last Done Comments COLOGUARD (AGES 45-75) - COL ON CA SCREENING 1979 COLON MONITORING 1979 COLONOSCOPY - COLON CA SCREENING 1979 CT COLONOGRAPHY - COLON CA SCREENING 1979 Colorectal Cancer Screening 1979 FIT - COLON CA SCREENING 1979 FLEX SIG - COLON CA SCREENING 1979 LIPID TESTING 1979 HIV SCREENING 1994 HEPATITIS C SCREENING 08/27/1997 DTAP/TDAP/TD VACCINES (1 - Tdap) 1998 HEPATITIS B VACCINE (1 of 3 - 19+ 3-dose series) 1998 HPV VACCINE (1 - 3-dose SCDM series) 2006 DEPRESSION SCREENING 09/12/2024 COVID-19 VACCINE (1 - 2023-2 5 season) 2025 INFLUENZA VACCINE (#1) 2025 ZOSTER VACCINE (1 of 2) 2029 HIB VACCINE Aged Out No longer eligi ble based on patient's age to complete this topic MENINGOCOCCAL (Group B) VACC INE SHARED DECISION-MAKING Aged Out No longer eligibl e based on patient's age to complete this topic MENINGOCOCCAL GROUPS A/C/Y/W VACCINE Aged Out No longer eligible b ased on patient's age to complete this topic PNEUMOCOCCAL VACCINE Aged Out No long er eligible based on patient's age to complete this topic Goals Goal Patient Goal Type Associated Problems Recent Progress Patient-Stated? Author Safety General On track( 019 2:32 PM CDT) Lindsey Dodge RN Note: Expected end date: Ongoing Interventions: Your nurse will assess your risk for falls/injury each visit Use appropriate and safe transfer methods Medication Management General On track( 019 2:32 PM CDT) Lindsey Dodge RN Note: Expected end date: Ongoing Interventions: Take all medications as prescribed Let your doctor know right away about any changes in your medications Insurance [facility] Care Teams Primary Care Pediatrician Relationship Specialty Start Date End Date Balbir Schaeffer MD [address] [id number] [facility] - General 02/08/18
--- OUTSIDE RECORDS SUMMARY | 2025-05-24 20:20 | XMS_ITS | Clinical Summary ---
Author Organization [facility] Address [address], [facility] [address] [place] [address] Phone Care Team Providers Care District Manager Primary Care Sales Name Role Phone Balbir Schaeffer Primary Care Provider [phone] Allergies No known active allergies Medications amitriptyline (ELAVIL) 50 MG Tablet Take 50 mg by mouth nightly. Active Topiramate (TOPAMAX) 50 MG Tablet Take 50 mg by mouth 2 times daily. Active fenofibrate 160 MG Tablet Take 160 mg by mouth daily. Active HYDROcodone-farhad taminophen (NORCO) 5-325 MG Tablet Take 1 Tab by mouth every 4 hours as needed for Pain. Active polyethylene glycol (MIRALAX) Powder Use entire 255g bottle with 64oz of clear liquid as directed for colonoscopy prep. 255 g 7 Active Family History Medical History Relation Name Comments No Known Problems Father No Known Problems Mother Relation Name Status Comments Father Mother Social History Tobacco Use Types Packs/Day Years Used Date Smoking Tobacco: Every Day Cigarettes 0.5 15 Smokeless Tobacco: Never Tobacco Cessation:Ready to Q uit: No; Counseling Given: No Alcohol Use Standard Drinks/Week Comments No 0 (1 standard drink = 0.6 oz pur e alcohol) Sex and Gender Information Value Date Recorded Sex Assigned at Not on file Legal Sex Male 3:14 PM CDT Gender Identity Not on file Sexual Orientation Not on file Last Filed Vital Signs Vital Sign Reading Time Taken Comments Blood Pressure 120/86 04/29/2017 3:47 PM CDT Pulse 87 04/29/2017 3:47 PM CDT Temperature 36.6 C (97.8 F) 04/29/2017 3:47 PM CDT Respiratory Rate 16 04/29/2017 3:47 PM CDT Oxygen Saturation 96% 04/29/2017 3:47 PM CDT Inhaled Oxygen Concentration - - Weight 77.1 kg (170 lb) 04/29/2017 3:47 PM CDT Height 180.3 cm (5' 11) 04/29/2017 3:47 PM CDT Body Mass Index 23.71 04/29/2017 3:47 PM CDT Plan of Treatment Health Maintenance Due Date Last Done Comments Hepatitis C Virus (HCV) Screening 1979 TdaP Immunization 1979 Hepatitis B Immunization (1 of 3 - 19+ 3-dose series) 1998 Human Papillomavirus (HPV) Immunization (1 - 3-dose SCDM series) 2006 SARS-COV-2 Immunization ( season) 2024 Cologuard 2024 Immunochemical Fecal Occult Blood 2024 Influenza Immunization (#1) 2025 Colonoscopy 05/17/2027 05/17/2017 Colorectal Cancer Screening 05/17/2027 Respiratory Syncytial Virus (RSV) Immunization (Adult) (1 - 1-dose 75+ series) 2054 Meningococcal Immunization (ACWY) Aged Out No longer eligible based on patient's age to complete this topic Pneumococcal Immunization Combined Aged Out No longer eligible based on patient's age to complete this topic Rotavirus Immunization Aged Out No lo nger eligible based on patient's age to complete this topic Procedures Procedure Name Priority Date/Time Associated Diagnosis Comments COLONOSCOPY Routine 05/17/2017 from Last 3 Months or Most Recently Relevant to Health Maintenance Results * COLONOSCOPY (05/17/2017) us Nicole Miller MD PROCEDURE/MINOR SURGICA L ORDERABLES Final Result from Last 3 Months or Most Recently Relevant to Health Maintenance Care Teams District Manager Primary Care Sales Relationship Specialty Start Date End Date Balbir Schaeffer [address] [place] [address] PCP - General Family Medicine 04/01/17
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
--- OUTSIDE RECORDS SUMMARY | 2025-05-24 20:20 | XMS_ITS | Patient Health Record ---
Author Organization [facility] [employer] Address [address] [facility] [address] [place] [address] Care Team Providers Care Teasel Setter Name Role Phone Balbir Schaeffer MD Primary Care Provider UnavailLaura Holland Unavailable [phone] Iris Vincent Unavailable [phone] Lion Collazo Unavailable [phone] Allergies No Known Allergies Reason For Referral No Information Medications Medication SIG (Take, Route, Frequency, Duration) Notes Start Date End Date Status DULoxetine HCl 30 MG Capsule Delayed Release Particles 1 capsule Orally Once a day; Duration: 90 days Active Social History Tobacco Use: Social History Observation Description Date Details (start date - stop date) Current Smoker 10/11/2024 - NA Sex Assigned At : Social History Observation Description Sex Assigned At Male Social History Miscellaneous: Social Info Question Answer Notes Advance Care Planning Are you your own decision-maker Yes Do you have Power of [place] [employer] for Health or [facility]? No Safety issues: Are there any firearms in the house? No Social History Social Info Question Answer Notes Household: Marital Status: Number of Adults in household: 2 Number of Children in Household: 3 Level of Education: Finished College Drug/Alcohol: Social Info Question Answer Notes Drugs Have you used drugs other than those for medical reasons in the past 12 months? Yes Methamphetamine? No Crack? No LSD? No Ecstacy? No Prescription opiates? No Marijuana? Yes Ketamine? No PCP? No Is there a minor (18 years or younger) at risk at home? No Are you still using? No AUDIT-C (Standard) Interpretation Positive Did you have a drink containing alcohol in the p ast year? Yes How often did you have six or more drinks on one occasion in the past year? Never (0 point) How many drinks did you have on a typical day when you were drinking in the past year? 1 or 2 drinks (0 point) How often did you have a drink containing alcohol in the past year? Monthly or less (1 point) Tobacco Use: Social Info Question Answer Notes Tobacco Control (Standard) Tobacco use: Current smoker When did you start smoking? 10/11/2024 How often do you smoke cigarettes? Every day How many cigarettes a day do you smoke? 11-20 How soon after you wake up do you smoke your first cigarette? 6-30 minutes Are you interested in quitting? 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 Problems Problem Type SNOMED Code ICD Code Onset Dates Problem Status W/U Status Risk Notes Problem Moderate recurrent major depression (12175961) Major depressive disorder, recurrent, moderate (F33.1) Active confirmed Problem Primary insomnia (1392068) Primary insomnia (F51.01) Active confirmed Problem Generalized anxiety disorder (00599552) VARGHESE (generalized anxiety disorder) (F41.1) Active confirmed Problem Mild recurrent major depression (78998659) MDD (major depressive disorder), recurrent episode, mild (F33.0) Active confirmed Problem Nondependent cannabis abuse (382063991) Marijuana use (F12.90) Active confirmed Problem Tobacco user (839731179) Nicotine dependence with current use (F17.200) Active confirmed Vital Signs Heart Rate 64 /min 03/25/2025 Blood pressure diastolic 75 mm Hg 03/25/2025 Weight-kg 68.04 kg 03/25/2025 Blood pressure systolic 119 mm Hg 03/25/2025 Weight 150 lbs 03/25/2025 Encounters Encounter Location Date Provider Diagnosis [facility] [address] [facility] [address] [facility] [address] [place] [address] 05/24/2024 Lion Clubb MDD (major depressiv e disorder), recurrent episode, mild F33.0 ; VARGHESE (generalized anxiety disorder) F41.1 ; Marijuana use F12.90 and Nicotine dependence with current use F17.200 [facility] [address] [place] [address] 07/24/2024 Laura Sanchez MDD (major depressiv e disorder), recurrent episode, mild F33.0 ; VARGHESE (generalized anxiety disorder) F41.1 ; Marijuana use F12.90 and Nicotine dependence with current use F17.200 [facility] [address] [place] [address] 08/21/2024 Laura Sanchez MDD (major depressiv e disorder), recurrent episode, mild F33.0 ; VARGHESE (generalized anxiety disorder) F41.1 ; Marijuana use F12.90 and Nicotine dependence with current use F17.200 [facility] [address] [place] [address] 10/12/2024 Laura Sanchez MDD (major depressiv e disorder), recurrent episode, mild F33.0 ; VARGHESE (generalized anxiety disorder) F41.1 ; Marijuana use F12.90 and Nicotine dependence with current use F17.200 [facility] [address] [place] [address] 12/07/2024 Laura Sanchez Encounter for screen ing for depression Z13.31 ; Encounter for screening for cardiovascular disorders Z13.6 ; MDD (major depressive disorder), recurrent episode, mild F33.0 ; VARGHESE (generalized anxiety disorder) F41.1 ; Marijuana use F12.90 ; Nicotine dependence with current use F17.200 and Nicotine use Z72.0 [facility] [address] [facility] [address] [place] [address] 01/07/2025 Laura Sanchez Encounter for screen ing for depression Z13.31 ; Nicotine use Z72.0 ; Encounter for screening for cardiovascular disorders Z13.6 ; MDD (major depressive disorder), recurrent episode, mild F33.0 ; VARGHESE (generalized anxiety disorder) F41.1 and Marijuana use F12.90 [facility] [address] [facility] [address] [place] [address] 02/13/2025 Laura Sanchez [facility] [address] [place] [address] 03/25/2025 Laura Sanchez VARGHESE (generalized anxiety disorder) F41.1 ; MDD (major depressive disorder), recurrent episode, mild F33.0 ; Marijuana use F12.90 and Nicotine use Z72.0 [facility] [address] [place] [address] 04/22/2025 Laura Sanchez [facility] [employer], [address] [place] [address] 03/25/2025 Laura Sanchez [facility], [facility] [address] [place] [address] 06/06/2024 [facility] [address] [place] [address] 06/07/2024 [facility], [facility] [address] [place] [address] 06/15/2024 [facility], [facility] [address] [place] [address] 06/15/2024 [facility], [facility] [address] [place] [address] 06/15/2024 [facility], [facility] [address] [place] [address] 06/15[facility] [address] [place] [address] 06/15/2024 [facility], [facility] [address] [place] [address] 06/15/2024 [facility], [facility] [address] [place] [address] 06/15/2024 [facility], [facility] [address] [place] [address] 12/07/2024 Laura Sanchez [facility], [facility] [address] [place] [address] 01/07/2025 Laura Sanchez Assessments Encounter Date Diagnosis (ICD Code) Assessment Notes Treatment Notes Treatment Clinical Notes Section Notes 05/24/2024 MDD (major depressive disorder), recurrent episode, mild (ICD-10 - F33.0) 1. Major Depressive Disorder (MDD) - Patient reports improvement in depressive symptoms with current PHQ-9 score of 5, down from 14 previously. - Currently on escitalopram 2.5mg daily, tolerating well after initial side effects. - Rates current depression as 5/10, with less frequent depressive episodes. - Plan: a. Continue escitalopram 2.5mg daily. b. Reassess in 1 month to determine if dosage increase is needed. c. Encourage symptom monitoring and reporting worsening or side effects. 2. Generalized Anxiety Disorder (VARGHESE) - Patient reports improvement in anxiety with current VARGHESE-7 score of 5, down from 17 previously. - Has not taken prescribed propranolol and prefers to continue without it. - Practicing self-guided cognitive behavioral techniques. - Plan: a. Discontinue propranolol. b. Encourage continuing cognitive behavioral techniques. c. Reassess in 1 month to determine if additional interventions needed. 3. Substance Use - Patient reports ongoing marijuana and nicotine use. - Plan: a. Continue monitoring substance use and discuss potential mental health impact. b. Provide cessation resources if patient expresses interest. 4. Follow-up and Coordination of Care - Patient has not seen PCP in 2 years or completed recent bloodwork. - Plan: a. Encourage PCP appointment for general check-up and [facility] bloodwork. b. Schedule 1 month follow-up to reassess mental health and medication management. c. If stable, consider extending visit intervals and coordinating/tr ansitioning care 07/24/2024 MDD (major depressive disorder), recurrent episode, mild (ICD-10 - F33.0) SSRI/SNRI side effects discussed including but not limited to, gastric upset, nausea, vomiting, diarrhea and/or constipation, weight changes, sexual side effects including loss of libido, increased suicidal thoughts/behavio rs in children and young adults, and serotonin syndrome. SSRIs and Marijuana: Cannabidiol, or CBD, in marijuana can increase the levels of SSRIs in your bloodstream because CBD blocks your body from clearing the antidepressant as quickly as normal. Having increased levels of serotonin in your body from SSRI use can cause a potentially fatal condition called serotonin syndrome. 08/21/2024 MDD (major depressive disorder), recurrent episode, mild (ICD-10 - F33.0) SSRI/SNRI side effects discussed including but not limited to, gastric upset, nausea, vomiting, diarrhea and/or constipation, weight changes, sexual side effects including loss of libido, increased suicidal thoughts/behavio rs in children and young adults, and serotonin syndrome. SSRIs and Marijuana: Cannabidiol, or CBD, in marijuana can increase the levels of SSRIs in your bloodstream because CBD blocks your body from clearing the antidepressant as quickly as normal. Having increased levels of serotonin in your body from SSRI use can cause a potentially fatal condition called serotonin syndrome. 10/12/2024 MDD (major depressive disorder), recurrent episode, mild (ICD-10 - F33.0) SSRI/SNRI side effects discussed including but not limited to, gastric upset, nausea, vomiting, diarrhea and/or constipation, weight changes, sexual side effects including loss of libido, increased suicidal thoughts/behavio rs in children and young adults, and serotonin syndrome. SSRIs and Marijuana: Cannabidiol, or CBD, in marijuana can increase the levels of SSRIs in your bloodstream because CBD blocks your body from clearing the antidepressant as quickly as normal. Having increased levels of serotonin in your body from SSRI use can cause a potentially fatal condition called serotonin syndrome. 12/07/2024 Encounter for screening for depression (ICD-10 - Z13.31) 01/07/2025 Encounter for screening for depression (ICD-10 - Z13.31) 03/25/2025 VARGHESE (generalized anxiety disorder) (ICD-10 - F41.1) 03/25/2025 MDD (major depressive disorder), recurrent episode, mild (ICD-10 - F33.0) SSRI/SNRI side effects discussed including but not limited to, gastric upset, nausea, vomiting, diarrhea and/or constipation, weight changes, sexual side effects including loss of libido, increased suicidal thoughts/behavio rs in children and young adults, and serotonin syndrome. SSRIs and Marijuana: Cannabidiol, or CBD, in marijuana can increase the levels of SSRIs in your bloodstream because CBD blocks your body from clearing the antidepressant as quickly as normal. Having increased levels of serotonin in your body from SSRI use can cause a potentially fatal condition called serotonin syndrome. cannabis use can increase duloxetine level by effecting hepatic CYP2D6 metabolism 03/25/2025 Marijuana use (ICD-10 - F12.90) 01/07/2025 Nicotine use (ICD-10 - Z72.0) 12/07/2024 Encounter for screening for cardiovascular disorders (ICD-10 - Z13.6) 08/21/2024 VARGHESE (generalized anxiety disorder) (ICD-10 - F41.1) 10/12/2024 VARGHESE (generalized anxiety disorder) (ICD-10 - F41.1) 05/24/2024 VARGHESE (generalized anxiety disorder) (ICD-10 - F41.1) Learning About Generalized Anxiety Disorder material was published 1. Major Depressive Disorder (MDD) - Patient reports improvement in depressive symptoms with current PHQ-9 score of 5, down from 14 previously. - Currently on escitalopram 2.5mg daily, tolerating well after initial side effects. - Rates current depression as 5/10, with less frequent depressive episodes. - Plan: a. Continue escitalopram 2.5mg daily. b. Reassess in 1 month to determine if dosage increase is needed. c. Encourage symptom monitoring and reporting worsening or side effects. 2. Generalized Anxiety Disorder (VARGHESE) - Patient reports improvement in anxiety with current VARGHESE-7 score of 5, down from 17 previously. - Has not taken prescribed propranolol and prefers to continue without it. - Practicing self-guided cognitive behavioral techniques. - Plan: a. Discontinue propranolol. b. Encourage continuing cognitive behavioral techniques. c. Reassess in 1 month to determine if additional interventions needed. 3. Substance Use - Patient reports ongoing marijuana and nicotine use. - Plan: a. Continue monitoring substance use and discuss potential mental health impact. b. Provide cessation resources if patient expresses interest. 4. Follow-up and Coordination of Care - Patient has not seen PCP in 2 years or completed recent bloodwork. - Plan: a. Encourage PCP appointment for general check-up and [facility] bloodwork. b. Schedule 1 month follow-up to reassess mental health and medication management. c. If stable, consider extending visit intervals and coordinating/tr ansitioning care 07/24/2024 VARGHESE (generalized anxiety disorder) (ICD-10 - F41.1) 05/24/2024 Marijuana use (ICD-10 - F12.90) 1. Major Depressive Disorder (MDD) - Patient reports improvement in depressive symptoms with current PHQ-9 score of 5, down from 14 previously. - Currently on escitalopram 2.5mg daily, tolerating well after initial side effects. - Rates current depression as 5/10, with less frequent depressive episodes. - Plan: a. Continue escitalopram 2.5mg daily. b. Reassess in 1 month to determine if dosage increase is needed. c. Encourage symptom monitoring and reporting worsening or side effects. 2. Generalized Anxiety Disorder (VARGHESE) - Patient reports improvement in anxiety with current VARGHESE-7 score of 5, down from 17 previously. - Has not taken prescribed propranolol and prefers to continue without it. - Practicing self-guided cognitive behavioral techniques. - Plan: a. Discontinue propranolol. b. Encourage continuing cognitive behavioral techniques. c. Reassess in 1 month to determine if additional interventions needed. 3. Substance Use - Patient reports ongoing marijuana and nicotine use. - Plan: a. Continue monitoring substance use and discuss potential mental health impact. b. Provide cessation resources if patient expresses interest. 4. Follow-up and Coordination of Care - Patient has not seen PCP in 2 years or completed recent bloodwork. - Plan: a. Encourage PCP appointment for general check-up and [facility] bloodwork. b. Schedule 1 month follow-up to reassess mental health and medication management. c. If stable, consider extending visit intervals and coordinating/tr ansitioning care 08/21/2024 Marijuana use (ICD-10 - F12.90) 07/24/2024 Marijuana use (ICD-10 - F12.90) 10/12/2024 Marijuana use (ICD-10 - F12.90) 12/07/2024 MDD (major depressive disorder), recurrent episode, mild (ICD-10 - F33.0) SSRI/SNRI side effects discussed including but not limited to, gastric upset, nausea, vomiting, diarrhea and/or constipation, weight changes, sexual side effects including loss of libido, increased suicidal thoughts/behavio rs in children and young adults, and serotonin syndrome. SSRIs and Marijuana: Cannabidiol, or CBD, in marijuana can increase the levels of SSRIs in your bloodstream because CBD blocks your body from clearing the antidepressant as quickly as normal. Having increased levels of serotonin in your body from SSRI use can cause a potentially fatal condition called serotonin syndrome. 01/07/2025 Encounter for screening for cardiovascular disorders (ICD-10 - Z13.6) 03/25/2025 Nicotine use (ICD-10 - Z72.0) 12/07/2024 VARGHESE (generalized anxiety disorder) (ICD-10 - F41.1) 01/07/2025 MDD (major depressive disorder), recurrent episode, mild (ICD-10 - F33.0) SSRI/SNRI side effects discussed including but not limited to, gastric upset, nausea, vomiting, diarrhea and/or constipation, weight changes, sexual side effects including loss of libido, increased suicidal thoughts/behavio rs in children and young adults, and serotonin syndrome. SSRIs and Marijuana: Cannabidiol, or CBD, in marijuana can increase the levels of SSRIs in your bloodstream because CBD blocks your body from clearing the antidepressant as quickly as normal. Having increased levels of serotonin in your body from SSRI use can cause a potentially fatal condition called serotonin syndrome. cannabis use can increase duloxetine level by effecting hepatic CYP2D6 metabolism 10/12/2024 Nicotine dependence with current use (ICD-10 - F17.200) Learning About Benefits of Quitting Smoking material was published, Learning About Benefits of Quitting Smoking material was published 07/24/2024 Nicotine dependence with current use (ICD-10 - F17.200) Learning About Benefits of Quitting Smoking material was published, Learning About Benefits of Quitting Smoking material was published 08/21/2024 Nicotine dependence with current use (ICD-10 - F17.200) Learning About Benefits of Quitting Smoking material was published, Learning About Benefits of Quitting Smoking material was published 05/24/2024 Nicotine dependence with current use (ICD-10 - F17.200) 1. Major Depressive Disorder (MDD) - Patient reports improvement in depressive symptoms with current PHQ-9 score of 5, down from 14 previously. - Currently on escitalopram 2.5mg daily, tolerating well after initial side effects. - Rates current depression as 5/10, with less frequent depressive episodes. - Plan: a. Continue escitalopram 2.5mg daily. b. Reassess in 1 month to determine if dosage increase is needed. c. Encourage symptom monitoring and reporting worsening or side effects. 2. Generalized Anxiety Disorder (VARGHESE) - Patient reports improvement in anxiety with current VARGHESE-7 score of 5, down from 17 previously. - Has not taken prescribed propranolol and prefers to continue without it. - Practicing self-guided cognitive behavioral techniques. - Plan: a. Discontinue propranolol. b. Encourage continuing cognitive behavioral techniques. c. Reassess in 1 month to determine if additional interventions needed. 3. Substance Use - Patient reports ongoing marijuana and nicotine use. - Plan: a. Continue monitoring substance use and discuss potential mental health impact. b. Provide cessation resources if patient expresses interest. 4. Follow-up and Coordination of Care - Patient has not seen PCP in 2 years or completed recent bloodwork. - Plan: a. Encourage PCP appointment for general check-up and [facility] bloodwork. b. Schedule 1 month follow-up to reassess mental health and medication management. c. If stable, consider extending visit intervals and coordinating/tr ansitioning care 12/07/2024 Marijuana use (ICD-10 - F12.90) 01/07/2025 VARGHESE (generalized anxiety disorder) (ICD-10 - F41.1) 01/07/2025 Marijuana use (ICD-10 - F12.90) 12/07/2024 Nicotine dependence with current use (ICD-10 - F17.200) 12/07/2024 Nicotine use (ICD-10 - Z72.0) 05/24/2024 Other Assessment and plan reviewed with patient Discussed medication side effects Discussed the risks/benefits of this medication Has improved significantly Treatment options reviewed. Seek emergency services if suicidal thoughts occur. Call or return to [facility] for any concerns about treatment or contact provider through the portal. Educated not to abruptly stop taking the medication. All questions answered. 1. Major Depressive Disorder (MDD) - Patient reports improvement in depressive symptoms with current PHQ-9 score of 5, down from 14 previously. - Currently on escitalopram 2.5mg daily, tolerating well after initial side effects. - Rates current depression as 5/10, with less frequent depressive episodes. - Plan: a. Continue escitalopram 2.5mg daily. b. Reassess in 1 month to determine if dosage increase is needed. c. Encourage symptom monitoring and reporting worsening or side effects. 2. Generalized Anxiety Disorder (VARGHESE) - Patient reports improvement in anxiety with current VARGHESE-7 score of 5, down from 17 previously. - Has not taken prescribed propranolol and prefers to continue without it. - Practicing self-guided cognitive behavioral techniques. - Plan: a. Discontinue propranolol. b. Encourage continuing cognitive behavioral techniques. c. Reassess in 1 month to determine if additional interventions needed. 3. Substance Use - Patient reports ongoing marijuana and nicotine use. - Plan: a. Continue monitoring substance use and discuss potential mental health impact. b. Provide cessation resources if patient expresses interest. 4. Follow-up and Coordination of Care - Patient has not seen PCP in 2 years or completed recent bloodwork. - Plan: a. Encourage PCP appointment for general check-up and [facility] bloodwork. b. Schedule 1 month follow-up to reassess mental health and medication management. c. If stable, consider extending visit intervals and coordinating/tr ansitioning care 07/24/2024 Other Discontinue escitalopram due to ineffectivness. Start sertraline 25mg daily for 6 days then 50mg daily for anxiety, depression. Patient educated on all medications including potential benefits, side effects, risks. Educated on proper dosing schedule and importance of compliance. [facility] , Sertraline Oral Tablet (SERTRALINE - ORAL) material was published Total time 40 minutes; greater than 50% spent [id number] time with patient. 08/21/2024 Other Has not yet started sertraline, currently taking escitalopram 5mg daily. Cross taper sertraline and escitalopram. Sertraline-take half a tablet 25mg daily for 6 days then one tablet 50mg daily. Escitalopram-promise e half a tablet 2.5mg daily for 6 days then stop. Patient educated on all medications including potential benefits, side effects, risks. Educated on proper dosing schedule and importance of compliance. -Assessment and treatment plan reviewed with patient. -Compliance with treatment plan importance discussed. -Discussed the risks/benefits of this medication -Discussed medication side effects. -Contact office if symptoms worsen. -Discussed that it can take up to 6-8 weeks to see full therapeutic effects of psychotropic medications. -Crisis prevention [facility] 98. 10/12/2024 Other Increase sertraline to 75mg daily for anxiety, obsessional thoughts Patient educated on all medications including potential benefits, side effects, risks. Educated on proper dosing schedule and importance of compliance. 12/07/2024 Other Discontinue sertraline per patient Start duloxetine 30mg daily for mood, anxiety Patient educated on all medications including potential benefits, side effects, risks. Educated on proper dosing schedule and importance of compliance. Referred to counseling -Assessment and treatment plan reviewed with patient. -Compliance with treatment plan importance discussed. -Discussed the risks/benefits of this medication -Discussed medication side effects. -Contact office if symptoms worsen. -Discussed that it can take up to 6-8 weeks to see full therapeutic effects of psychotropic medications. -Crisis prevention [facility] 98. 01/07/2025 Other Stable on current medication regimen, continue at current doses. -No concerns today Patient educated on all medications including potential benefits, side effects, risks. Educated on proper dosing schedule and importance of compliance. -Assessment and treatment plan reviewed with patient. -Compliance with treatment plan importance discussed. -Discussed the risks/benefits of this medication -Discussed medication side effects. -Contact office if symptoms worsen. -Discussed that it can take up to 6-8 weeks to see full therapeutic effects of psychotropic medications. -Crisis prevention [facility] 98. 03/25/2025 Other Patient agreeable to start medication, start duloxetine 30mg daily for anxiety, mood support Patient educated on all medications including potential benefits, side effects, risks. Educated on proper dosing schedule and importance of compliance. -Assessment and treatment plan reviewed with patient. -Compliance with treatment plan importance discussed. -Discussed the risks/benefits of this medication -Discussed medication side effects. -Contact office if symptoms worsen. -Discussed that it can take up to 6-8 weeks to see full therapeutic effects of psychotropic medications. -Crisis prevention hotline 988. Plan Of Treatment Pending Test Test Name Order Date UDT 04/17/2024 Future Test Test Name Order Date THYROID PANEL WITH TSH (7444) 04/17/2024 BASIC METABOLIC PANEL (31374) 04/17/2024 COMPREHENSIVE METABOLIC PANEL (40285) VITAMIN B12 (927) 04/17/2024 VITAMIN D,25-OH,TOTAL,IA (42819) 024 Insurance Providers Payer Name Payer Address Payer Phone Subscriber Number Group Number Insured Name Patient Relationship to Insured Coverage Start Date Coverage End Date [place] [address] [place] [id number] Thaddeus Molina Self - patient is the insured Medical (General) History Medical History History ICD Code Past Psychiatric History: Anxiety Disord er,Major Depressive Episode abdominal aortic aneurysm: No atrial fibrillation: No chronic fatigue syndrome: No essential tremor: No hyperlipidemia: No hypertension: No Parkinson's disease: No restless leg syndrome: No stroke: No subdural hematoma: No type 1 diabetes mellitus: No type 2 diabetes mellitus: No vitamin B12 deficiency: No vitamin D deficiency: No
--- NOTE | 2025-05-24 20:24 | ECG_ITS ---
Test Date: 2025-05-24 20:31:30 Measurements Intervals [place] Rate: 81 P: 71 [place]: 157 QRS: 7 QRSD: 101 T: 64 QT: 360 QTc: 420 Interpretive Statements SINUS RHYTHM POSSIBLE LEFT ATRIAL ENLARGEMENT [-0.1mV P-WAVE IN V1/V2] BORDERLINE ECG No previous ECG available for comparison Electronically Signed On 05-25-2025 12:18:44 CDT by Rishi Paredes M.D.
[2025-05-24 20:48] LABS: Hematocrit 45.5 % (42.0-52.0); Hemoglobin 15.3 g/dL (14.0-18.0); Immature Granulocyte Percent A 0.1 % (0-0.5); Lymphocytes Absolute Auto 3.16 K/mm3 (0.9-3.2); Mean Corpuscular HGB Conc 33.6 g/dl (32-36); Mean Corpuscular Hemoglobin 30.2 pg (26-34); Mean Corpuscular Volume 89.7 fl (80-100); Nucleated Red Blood Cells Absolute Auto 0.000 K/mm3 (0.0-0.012); Nucleated Red Blood Cells Perc 0.0 % (0.0-0.2); Platelet Count Result 279 k/mm3 (150-375); Red Blood Count 5.07 M/mm3 (4.6-6.20); White Blood Count 8.2 K/mm3 (4.5-10.0)
[2025-05-24 20:58] LABS: Alanine Aminotransferase 26 U/L (6-50); Albumin Level 4.8 g/dL (3.5-5.1); Alkaline Phosphatase 85 U/L (38-126); Anion Gap 9 mmol/L (4-12); Aspartate Amino Transferase 34 U/L (17-59); Bilirubin,Total 0.8 mg/dL (0.2-1.3); Blood Urea Nitrogen 21 mg/dL (9-20); Calcium 9.5 mg/dL (8.4-10.2); Carbon Dioxide 25 mmol/L (22-30); Chloride 106 mmol/L (98-107); Estimated CRCL calculation 91 ml/min; Estimated Glomerular Filt Rate > 60; Glucose 106 mg/dL (65-110); Lipase 77 U/L (23-300); Potassium 3.6 mmol/L (3.4-5.0); Sodium 140 mmol/L (137-145); Total Protein 8.1 g/dL (6.3-8.2)
[2025-05-24 21:00] LABS: INR 0.9; Prothrombin Time 12.1 Seconds (11.1-14.7)
[2025-05-24 21:01] LABS: Partial Thromboplastin Time 27.3 Seconds (22.3-36.8)
[2025-05-24 21:09] LABS: Troponin I < 0.012 ng/mL (0.000-0.034)
--- NOTE | 2025-05-24 23:20 | PC.NURSE ---
1st call, no answer
--- NOTE | 2025-05-24 23:31 | PC.NURSE ---
2nd call no answer
--- OUTSIDE RECORDS SUMMARY | 2025-05-24 23:37 | XMS_ITS | Encounter Summary ---
Author Organization [facility] Address [address] [place] [address] Care Team Providers Care Marine Electronics Repairer Name Role Phone Balbir Schaeffer MD Primary Care Provider [phone] Reason for Visit * Reason Onset Date Comments MEDICATION REFILL 08/16/2018 Encounter Details Date Type Department Care Team (Late st Contact Info) Description 08/16/2018 Refill [facility] [address] [place] [address] Alana Khan, PAMary Alice [address] [id number] MEDICATION REFILL Social History Tobacco Use Types Packs/Day Years Used Date Smoking Tobacco: Every Day Cigarettes Smokeless Tobacco: Never Alcohol Use Standard Drinks/Week Comments No 0 (1 standard drink = 0.6 oz pur e alcohol) Sex and Gender Information Value Date Recorded Sex Assigned at Not on file 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
--- OUTSIDE RECORDS SUMMARY | 2025-05-24 23:38 | XMS_ITS | Clinical Summary ---
Author Organization [facility] Address [address], [facility] [address] [place] [address] Phone Care Team Providers Care Rock Cutter Name Role Phone Balbir Schaeffer Primary Care Provider [phone] Allergies No known active allergies Medications amitriptyline [...] Recently Relevant to Health Maintenance Care Teams Rock Cutter Relationship Specialty Start Date End Date Balbir Schaeffer [address] [place] [address] PCP - General Family Medicine 04/01/17
--- OUTSIDE RECORDS SUMMARY | 2025-05-24 23:38 | XMS_ITS | Clinical Summary ---
Author Organization [facility] Address [address] [place] [address] Care Team Providers Care Wardrobe Coordinator Name Role Phone Balbir Schaeffer MD Primary Care Provider [phone] Allergies No known active allergies Medications ondansetron [...] CDT - 05/05/2025 10:16 AM CDT Emergency [facility] Emergency Room [address] [place] [id number] Min Mayers DO Medical Problem Discharge Disposition: [...] 9:37 AM Narrative 05/05/2025 9:48 AM CDT [address] [place] [address] Examination: CT ABD+PEL W CON Exam time: [...] Procedure Note Roel Rock MD - 05/05/2025 [facility] [address] [facility] [place] [address] Examination: CT ABD+PEL W CON Exam time: [...] - 99 MG/DL 05/05/2025 9:03 AM T [facility] BUN 13 7 - 18 MG/DL 05/05/2025 9:03 AM T [facility] CREATININE S/P/B 0.78 0.7 - 1.3 MG/DL 05/05/2025 9:03 AM [facility] SODIUM S/P/B 142 136 - 145 MMOL/L 05/05/2025 9:03 AM [facility] POTASSIUM S/P/B 3.7 3.5 - 5.1 MMOL/L 05/05/2025 9:03 AM T [facility] CHLORIDE S/P/B 107 100 - 108 MMOL/L 05/05/2025 9:03 AM T [facility] CO2 28.5 21 - 32 MMOL/L 05/05/2025 9:03 AM [facility] CALCIUM S/P/B 8.6 8.5 - 10.1 MG/DL 05/05/2025 9:03 AM [facility] BILIRUBIN TOTAL S/P/B 0.6 0.2 - 1.2 MG/DL 05/05/2025 9:03 AM [facility] TOTAL PROTEIN S/P/B 7.1 6.4 - 8.2 G/DL 05/05/2025 9:03 AM [facility] ALBUMIN S/P/B 3.8 3.4 - 5.0 G/DL 05/05/2025 9:03 AM [facility] AST 17 15 - 37 U/L 05/05/2025 9:03 AM [facility] ALT 25 16 - 60 U/L 05/05/2025 9:03 AM [facility] ALKALINE PHOSPHATASE S/P/B 72 50 - 136 U/L 05/05/2025 9:03 AM [facility] ANION GAP 6.5 5 - 15 MMOL/L 05/05/2025 9:03 AM [facility] BUN CREATININE RATIO 16.7 6 - 26 05/05/2025 9:03 AM [facility] A/G RATIO 1.2 1.0 - 2.0 RATIO 05/05/2025 9:03 AM [facility] GFR ESTIMATE >90 >90 ML/MIN/1.7 3 M2 05/05/2025 9:03 AM [facility] Comment: NOTE: eGFR is not calculated for patients <18 years of age. This is an estimated GFR calculation using the new CKD EPI creatinine equation without race and so does not require a correction factor for race. This estimated GFR should not be used for calculating drug doses. 05/05/2025 8:27 AM CDT Min Mayers DO LABORATORY Final Result [facility] [address] [place] [address], * CBC W/DIFF AUTOMATED (05/05/2025 8:27 AM CDT) WBC 6.57 4.4 - 11.0 x10'3/uL 05/05/2025 8:50 AM CDT [facility] RBC 4.66 4.50 - 5.90 x10'6/uL 05/05/2025 8:50 AM CDT [facility] HGB 14.4 14.0 - 17.5 G/DL 05/05/2025 8:50 AM CDT [facility] HCT 42.2 41.5 - 50.4 % 05/05/2025 8:50 AM CDT [facility] MCV 90.6 80.0 - 96.0 FL 05/05/2025 8:50 AM CDT [facility] MCH 30.9 26.5 - 31.4 PG 05/05/2025 8:50 AM CDT [facility] MCHC 34.1 31.9 - 34.8 G/DL 05/05/2025 8:50 AM CDT [facility] RDW 12.9 12.3 - 14.3 % 05/05/2025 8:50 AM CDT [facility] PLT 240 151 - 353 x10'3/uL 05/05/2025 8:50 AM CDT [facility] MPV 10.4 9.7 - 11.9 FL 05/05/2025 8:50 AM CDT [facility] RBC MORPHOLOGY NORMAL 05/05/2025 8:50 AM CDT [facility] PLT MORPH. NORMAL 05/05/2025 8:50 AM CDT [facility] WBC MORPHOLOGY NORMAL 05/05/2025 8:50 AM CDT [facility] LYMPHOCYTES % 25.6 15.8 - 45.0 % 05/05/2025 8:50 AM CDT [facility] NEUTROPHILS % 62.6 42.1 - 71.9 % 05/05/2025 8:50 AM CDT [facility] MONOCYTES % 9.1 5.7 - 12.5 % 05/05/2025 8:50 AM CDT [facility] EOSINOPHILS 1.7 0.0 - 5.6 % 05/05/2025 8:50 AM CDT [facility] BASOPHILS 0.8 0.0 - 1.3 % 05/05/2025 8:50 AM CDT [facility] ABS. NEUTROPHILS 4.12 1.40 - 6.00 x10'3/uL 05/05/2025 8:50 AM CDT [facility] IMMATURE GRANS % 0.2 0.0 - 0.5 % 05/05/2025 8:50 AM CDT [facility] ABS. LYMPHOCYTES 1.68 0.80 - 4.70 x10'3/uL 05/05/2025 8:50 AM CDT [facility] 05/05/2025 8:27 AM CDT Min Mayers DO LABORATORY Final Result [facility] [address] [place] [address], from Last 3 Months Insurance [employer] Care Teams Wardrobe Coordinator Relationship Specialty Start Date End Date Balbir Schaeffer MD [address] [place] [address] PCP - General FAMILY PRACTICE 12/04/24
== END 2025-05-24 23:20 | disposition left against medical advice (07) ==
LOC: ANHED 23:34
PROVIDERS: Emergency Provider Emergency Medicine; PCP Emergency Medicine
DX: R07.9 Chest pain, unspecified (principal); Z53.21 Procedure and treatment not carried out due to patient leaving prior to being seen by health care provider
CPT/HCPCS: 36415; 80053; 83690; 84484; 85025; 85610; 85730; 93005; 99199